=== PATIENT | male | born 1955 | race Caucasian/White ===

== ENCOUNTER 2016-10-13 08:44 | Inpatient (IN) | payer OTHER ==
[~2016-10-13] VITALS: Ht 182.9 cm; Wt 79.3 kg
--- NOTE | ~2016-10-13 | TXPLANREV ---
"PATIENT: JOSE ENRIQUE COOK | | [facility] UNIT #: [id number] | [address] AGE/SEX: 61 M : 57 | [address] | [place] [address] ADMIT/REG DATE: 12/30/16 | ROOM: [facility] LOC: ADTC | [facility] | Treatment Plan/Staffing Review Date: 01/20/17 Treatment plan was reviewed and determined appropriate as written: Yes Treatment plan was reviewed and the following changes/addition/deletions are necessary: Client is to continue working on treatment plan assignments. He will begin working on relapse prevention. Discharge plans were reviewed and determined appropriate as previously documented: No Discharge plans were reviewed and determined to be as follows: Client has been accepted into the [facility]. We are waiting to hear for approval with his toxics program officer, then we will schedule a date for him to go, pending that approval. He will also be recommended to do aftercare here at [facility], attend 3-5 AA meetings per week, as well as to get and call a sponsor on a regular basis. Other pertinent issues discussed during this staffing review include: None at this time. Staff Present: Mary Alan PRIMARY COUNSELOR: RIP Snowden Client Signature Counselor Signature Date Time "
--- NOTE | ~2016-10-13 | RESCARESUM ---
"PATIENT: JOSE ENRIQUE COOK | | [facility] UNIT #: [id number] | [address] AGE/SEX: 61 M : 57 | [address] | [place] [address] ADMIT/REG DATE: 12/30/16 | ROOM: [facility] LOC: ADTC | ADT | Summary of Residential Care Primary Counselor: Jayleen ERWIN Date of Admission: 12/30/16 Date of Discharge: 01/26/17 Referral Source: Licensing And Registration Director, Dada De Jesus Primary Care Provider Prior to Admission: Self Admitting Diagnosis: F10.20 Alcohol Use Disorder, Severe Discharge Diagnosis: Same Goals Achieved: Ferny was able to identify negative consequences of his alcoholism, and gained insight to the disease concept. He completed all packets, including Step 1, which assisted him in recognizing several things. He wrote and processed feelings letters and worked on grief of losing his son to suicide. He also worked on recovery maintenance. He was elected client support representative, which helped boost his self worth and gain leadership qualities. Continued Obstacles to Sobriety/Relapse Issues: Not following rules and regulations of the [facility], not going to aftercare or AA meetings, not getting and calling a sponsor on a regular basis, not seeking multimedia instructional designer employment, and not learning to work a strong program of recovery. Family Issues Addressed: We worked on grief of his sons suicide, and he wrote and processed feelings letters to his other children and other family members. We discussed his divorce and that relationship. Y Individual Therapy Y Group Therapy Y Educational Series on Substance Abuse Y Parents/Significant Others Attended Family Program N Acute Medical Problems During the Course of Treatment N Transferred to Hospital During the Course of Treatment Y Accepting of Substance Abuse Problem N Non-accepting of Substance Abuse Problem N Required Psychological or Psychiatric Consultation During the Course of Treatment Completed AA Step # 1 During This Level of Care Significant Incidences During Treatment: None Reason For Discharge: Y Completed Residential TX Goals and Ready For Next Level of Care N Left Tx Against Medical Advice/Treatment Goals Not Complete N Completed Residential Tx Goals But Refusing Continuing Care Recommendations N Discharged Due to Noncompliance/Treatment Goals not Completed PATIENT: JOSE ENRIQUE COOK | | [facility] UNIT #: [id number] | [address] AGE/SEX: 61 M : 57 | [address] | [place] [address] ADMIT/REG DATE: 12/30/16 | ROOM: [facility] LOC: ADTC | ADTC | Summary of Residential Care N Discharged Earlier Than Planned Due to: Continuing Care Plan/Recommendations: N Intensive Partial Care Y Sponsor N Partial Care Y AA Meetings/NA Meetings Y Outpatient N Co-dependency Services N Therapeutic Community N [address] [place] N Mental Health Therapy N Marriage Counseling N Other Specific Continuing Care Plan: It is recommended that Ferny go directly to the [facility], attend aftercare here with [facility], attend 3-5 AA meetings per week, get and call a sponsor on a regular basis, follow all rules and regulations of both the [facility] and probation, seek multimedia instructional designer work, and learn how to work a strong program of recovery. PRIMARY COUNSELOR: RIP Snowden"
--- NOTE | ~2016-10-13 | INDIVTXPLN ---
"PATIENT: JOSE ENRIQUE COOK | | [facility] UNIT #: [id number] | [address] AGE/SEX: 61 M : 57 | [address] | [place] [address] ADMIT/REG DATE: 12/30/16 | ROOM: [facility] LOC: ADTC | ADTC | Individualized Treatment Plan Date: 01/06/17 Problem Statement/Issue Identified: Client continued to use alcohol, despite ongoing negative consequences, and while being on probation, and he did not reach out to anyone in recovery for help. Goal: Client will learn how to identify negative consequences of his addiction, attend AA/NA meetings, and meet men in recovery. Objectives/Activities to achieve goal: 1. Client is to complete the How to Get Started packet and process it with counselor and selected pages in group. Due Date:01/09/17 Complete: Incomplete: 2. Client is to complete Step 1, process it with counselor and selected pages in group. Due Date:01/13/17 Complete: Incomplete: 3. Client is to attend AA/NA meetings, ask for and get at least 5 names and numbers of men in recovery, and share that list with counselor. Due Date:Ongoing Complete: Incomplete: Client signature Date Counselor signature Date Outcome/Measurement of Progress Towards Goal: Counselor's signature Date "
--- NOTE | ~2016-10-13 | INDIVTXPLN ---
"PATIENT: JOSE ENRIQUE COOK | | [facility] UNIT #: [id number] | [address] AGE/SEX: 61 M : 57 | [address] | [place] [address] ADMIT/REG DATE: 12/30/16 | ROOM: [facility] LOC: ADTC | ADTC | Individualized Treatment Plan Date: 01/20/17 Problem Statement/Issue Identified: Client needs to identify relapse warning signs and develop a plan to deal with them as they arise. Goal: Client will learn how to identify relapse triggers and make a plan of how to avoid them, and maintain his recovery. Objectives/Activities to achieve goal: 1. Client is to complete the Recovery Maintenance packet and process it with counselor. Due Date:01/27/17 Complete: Incomplete: Client signature Date Counselor signature Date Outcome/Measurement of Progress Towards Goal: Counselor's signature Date "
--- NOTE | ~2016-10-13 | TXPLANREV ---
"PATIENT: JOSE ENRIQUE COOK | | [facility] UNIT #: [id number] | [address] AGE/SEX: 61 M : 57 | [address] | [place] [address] ADMIT/REG DATE: 12/30/16 | ROOM: [facility] LOC: ADTC | ADTC | Treatment Plan/Staffing Review Date: 01/13/17 Treatment plan was reviewed and determined appropriate as written: Yes Treatment plan was reviewed and the following changes/addition/deletions are necessary: Client is to continue working on treatment plan assignments. He is working on past trauma and grief, as well as writing other feelings letters. Discharge plans were reviewed and determined appropriate as previously documented: No Discharge plans were reviewed and determined to be as follows: Client will benefit from going to sober living, and has signed releases to go to both the [facility] and the [facility]. Other pertinent issues discussed during this staffing review include: None at this time. Staff Present: Mary Alan PRIMARY COUNSELOR: RIP Snowden Client Signature Counselor Signature Date Time "
--- NOTE | ~2016-10-13 | INDIVTXPLN ---
"PATIENT: JOSE ENRIQUE COOK | | [facility] UNIT #: [id number] | [address] AGE/SEX: 61 M : 57 | [address] | [place] [address] ADMIT/REG DATE: 12/30/16 | ROOM: [facility] LOC: ADTC | ADTC | Individualized Treatment Plan Date: 01/07/17 Problem Statement/Issue Identified: Client needs to address issues related to past trauma, which has contributed to his continued alcohol use. Goal: Client will learn how to identify and process the trauma and grief surrounding his son's . Objectives/Activities to achieve goal: 1. Client is to complete the Grief packet, to include writing a goodbye letter to his son, and process it with counselor. Due Date:01/14/17 Complete: Incomplete: 2. Client is to participate in EMDR and process what he learns from it with counselor. Due Date:01/16/17 Complete: Incomplete: Client signature Date Counselor signature Date Outcome/Measurement of Progress Towards Goal: Counselor's signature Date "
--- NOTE | ~2016-10-13 | CLPRLASSUM ---
PATIENT: JOSE ENRIQUE COOK | | [facility] UNIT #: [id number] | [address] AGE/SEX: 61 M : 57 | [address] | [place] [address] ADMIT/REG DATE: 12/30/16 | ROOM: [facility] LOC: ADTC | ADTC | Client Problem List/Assessment Summary Date: 01/06/17 Problems identified by the client: Client has been charged with DUI for his 4th time, while on probation, and is seeking help. He also has trauma he needs to deal with. Problems identified by significant others: Same Client's Strengths: Client identified his strengths as: He is strong willed, can stay focused, can evaluate situations, and is caring. Problem List: Code: T Client continues to use alcohol &/or drugs despite ongoing negative consequences. Code: T Client does not "reach-out to others for help" and instead resumes using alcohol &/or drugs. Code: T Client has learned to deny or stuff feelings, including grief; needs to learn to identify and process feelings with safe people to acquire the necessary skills to maintain halfway sobriety. Code: T Client needs to identify relapse warning signs and develop a plan to deal with them as they arise. Code : T: to be addressed during course of treatment O: problem noted, expected to resolve itself with abstinence--specific tx plan not required R: problem noted, will be referred upon discharge PRIMARY COUNSELOR: RIP Snowden
--- NOTE | 2016-12-30 14:30 | NUR ---
INITIAL SESSION 1 HR: Clt was oriented to tx plans, schedules and what to expect from tx and this counselor. He stated he is here on his 4th DUI. He is hoping to get it reduced to a 3rd, but isn't sure. He is , has 4 children, one of whom committed suicide, so heard we will work on that while in tx. He admitted he has not dealt w/ it yet. He is to begin working on initial paperwork.
--- NOTE | 2016-12-30 17:44 | NUR ---
ADMISSION NOTE Client is a 61 y/o male referred to treatment by probation and brought here today from [facility] by Crisis Stabilization Unit staff. Clilent had been in the CSU for 4 days. Client states DOC is alcohol, last used 10 days ago, when client was drinking a case of beer per day. Client states NKMA and brings no medications with him today. Client resides in [facility], alone and does not anticiipate anyone coming for family group. Client was searched, no contraband found. Client did turn in a cellphone, wallet with cards, pocket knife and tube of Carmex for storage in the locked cabinet at the [place] [facility]. Rights/Responsibilities: Copy given and explained to client. Signed and accepted by client. Client oriented to physical lay out of the ADTC unit, given Big Book and admission packet. A Patrick was assigned. Buck
--- NOTE | 2016-12-30 19:33 | NUR ---
education note: 1 hour lecture by [facility] on hiv/aid/std. plus clients wwere tested for HIV.
--- NOTE | 2016-12-30 22:09 | NUR ---
Tech note: Client was checked into his room, seen by the DR and gave his first intro. He participated in guided meditation and attended an onsite AA meeting.
--- NOTE | 2016-12-31 05:31 | NUR ---
Bed note : Client was in bed with eyes closed and no movement at all bed checks.
--- NOTE | 2016-12-31 12:29 | NUR ---
AM GROUP 11:09/14.5 HR: Peers helped to ORIENT THIS CLIENT TO GROUP GUIDELINES, GOALS AND OBJECTIVES. Client identified his Drug of Choice as alcohol stating that he has been through treatment once before. Client said he has three children but doubts that they will participate in his treatment due to distance and family responsibilities. Client and peers heard several individuals process assignments and some discussion on the disease concept. This client was attentive and occasional offered feedback from his own perspective.
--- NOTE | 2016-12-31 13:43 | NUR ---
Tech Note: Outside speaker Dean Gonzales spoke at 1300. Client attended and is working on Getting Started.
--- NOTE | 2016-12-31 15:24 | NUR ---
FAMILY CONTACT: Kelli's Mom was called, and she advised there has been depression in the family since kelli's grandfather, who spent lots of [place] in a mental hospital. Kelli's Dad has suffered with it, as well, and she knows in the past couple weeks, kelli has been depressed too. She added it may have something to do w/ his son's . She was reassured we will do some work on that.
--- NOTE | 2016-12-31 15:27 | NUR ---
TRAUMA NOTE: Clt advised his son committed suicide 2 yrs ago. He heard we will work on that in session.
--- NOTE | 2016-12-31 17:26 | NUR ---
SPIRITUAL EDUCATION 1 HR. Topics today were clarifying the differences between spirituality and yazdanism, and playing the spiritual challenge game where they are asked thought provoking open ended questions. It is meant to inspire spiritual line of thought.
--- NOTE | 2016-12-31 22:43 | NUR ---
Tech Note : Client participated in rec by playing catch phrase and attended an onsite NA meeting.
--- NOTE | 2016-12-31 23:40 | NUR ---
Education: 1 Hour. Client attended "Disease Concept" presented by counselor.
--- NOTE | 2017-01-01 05:37 | NUR ---
Bed Note: Client was motionless with eyes closed at all bed checks.
--- NOTE | 2017-01-01 10:48 | NUR ---
Tech Note: Client participated in light stretching for morning exercise. Client stated that he is working on Step One.
--- NOTE | 2017-01-01 13:49 | NUR ---
PEER REVIEWS 1 HR: Clt participated in peer reviews and took a risk to give open and honest feedback to those receiving a review. The last half hour of group clients talked about loved ones and dying.
--- NOTE | 2017-01-01 15:48 | NUR ---
Education 1 Hour: Client heard from a member of the recovery community who shared his experience, strength and hope.
--- NOTE | 2017-01-01 16:11 | NUR ---
Step Education 1 hr/ Focus was on step 12 "having had a spiritual awakening", each person completed a set of questions on paper and then we discussed. This client participated.
--- NOTE | 2017-01-01 19:42 | NUR ---
Tech note: client was off the unit for [employer] banquet and speaker event
--- NOTE | 2017-01-02 11:52 | NUR ---
Group 1.5 Hr Ratio 1:10/Topics today were orientating a new member to group rules and goals, a GS packet and a getting started packet. Client shared how he could relate to what peers were sharing from assignments and issues.
--- NOTE | 2017-01-02 13:54 | NUR ---
Tech Note: Client went with group on an outdoor walk. Client is working on the Big Book.
--- NOTE | 2017-01-02 16:01 | NUR ---
Education Note: Client watched "How to Sabotage Your Treatment"
--- NOTE | 2017-01-02 16:32 | NUR ---
PEER REVIEWS 1.0 HR: Clt participated in peer reviews and took a risk to give open and honest feedback to those receiving a review.
--- NOTE | 2017-01-02 23:02 | NUR ---
TECH NOTE: Client participated in reading [employer], watched tv/movies, attended optional off site AA meeting. Missed communtiy meeting because client was sleeping in bed. SE:
--- NOTE | 2017-01-03 04:05 | NUR ---
Bed Note: Clt lay motionless in bed with eyes closed showing no distress at all bed checks.
--- NOTE | 2017-01-03 14:53 | NUR ---
IS 1 HR: Kelli shared about the suicide of his son. He used jonathant's gun, laid out a tarp, told his Mom he was sorry, and shot himself. Jonathant stated he blames himself for not seeing his depression, for letting him have the gun, and he had resentment for noone telling him his son had depression thru the yrs. He stated he has learned to accept it, but still hurts and is sad about it. He was given the grief pkt and will look into doing EMDR about it, if he is willing. At this point, he wasn't sure.
--- NOTE | 2017-01-03 15:18 | NUR ---
Tech Note: Client is working on studying his program schedule so he is not late. Also had an appt with his counselor.
--- NOTE | 2017-01-03 22:56 | NUR ---
TECH NOTE: Client played a game for REC, attended off site AA meeting, watched TV/movies SE: supper
--- NOTE | 2017-01-04 04:48 | NUR ---
Bed Note: Clt lay motionless in bed with eyes closed showing no distress at all bed checks.
--- NOTE | 2017-01-04 15:23 | NUR ---
Tech Note: Client participated in Big Book and stated that he is working on, "Grief."
--- NOTE | 2017-01-04 22:57 | NUR ---
Tech Note: Client attended A.A.Panel and participated in community clean. SE: Grief Letter
--- NOTE | 2017-01-05 04:51 | NUR ---
Bed Note: Client was motionless with eyes closed at all bed checks.
--- NOTE | 2017-01-05 10:22 | NUR ---
Tech notes: Client is working on BB
--- NOTE | 2017-01-05 15:47 | NUR ---
Morning Group, 1.5 hours, 10/04 Clients all participated in 2 family sculptures with role-playing, feedback, and how they related.
--- NOTE | 2017-01-05 16:02 | NUR ---
RECOVERY EDUCATION 1 HR. Todays topic was on denial; good, bad, and levels, life problems being 85 percent of recovery, and distorted thinking patterns that can keep us stuck.
--- NOTE | 2017-01-05 16:30 | NUR ---
Education note: Client watched video "Nightmare on [address]"
--- NOTE | 2017-01-05 18:43 | NUR ---
Education: 1 Hour. Client attended "Feelings" lecture given by staff.
--- NOTE | 2017-01-05 22:10 | NUR ---
Tech note: Client participated in rec by playing [employer] outside. Client attended an onsite NA meeting.
--- NOTE | 2017-01-06 04:16 | NUR ---
BED NOTE: client was in bed, motionless with eyes closed all three bed checks.
--- NOTE | 2017-01-06 12:00 | NUR ---
A.M. 1.5 hr group/ratio 1:11/ Group heard a 2 getting started assignments and a feelings letter. Focus was on how our addiction affects kids and significant others, abuse, and how important it is to express feelings. This client was quiet until the end and told peer what matters is how your kids see you.
--- NOTE | 2017-01-06 16:18 | NUR ---
Relapse Prevention, 10/01 ratio, 1.0 hours, Client attended and actively participated in relapse prevention education which focused on personal reactions to high risk situtations such as personal reactions vs. personal responses, addictive thinking, irresponsible thinking, addictive behavior, irresponsible behavior, instant gratification, and emotional consequences to thoughts and actions.
--- NOTE | 2017-01-06 16:35 | NUR ---
Tech Note: Client listened to speaker Nelson share his experience, strength and hope. Client is working on the Big Book.
--- NOTE | 2017-01-06 19:32 | NUR ---
Education : 1 hour lecture given by counselor on feelings.
--- NOTE | 2017-01-06 22:15 | NUR ---
Tech note: Client played catchphrase for rec, participated in guided meditation and attended AA meeting. SE: speaker
--- NOTE | 2017-01-07 04:23 | NUR ---
Bed note: client was in bed with eyes closed and no distress at all bed checks.
--- NOTE | 2017-01-07 10:04 | NUR ---
Juan J notes: Client is working on BB and mtg with meme
--- NOTE | 2017-01-07 12:15 | NUR ---
AM GROUP 10:1/1.5 HR: Client and peers participated in the ORIENTATION OF TWO NEW PEERS TO GROUP GUIDELINES, GOALS AND OBJECTIVES. All were involved as three group members processed their work from assignments. Multiple members related, several shared from their own experiences providing support and encouragement. This client asked to be excused to use the restroom but was not allowed to come back in the group.
--- NOTE | 2017-01-07 13:29 | NUR ---
Education note: Client watched video
--- NOTE | 2017-01-07 14:53 | NUR ---
Elizabeth 1 Hr/Client shared about his son killing his self and down played how it has affected him. Talked about issues with mom as well. Client did safe place with EMDR and was easily relaxed. Will check later to see if he would like to do mre EMDR
--- NOTE | 2017-01-07 16:23 | NUR ---
SPIRITUAL EDUCATION 1 HR. Todays topic was the ADDICTIVE SELF vs. SPIRITUAL SELF. We held discussion on who we are in our addiction vs who we are in recovery and contrasted the two.
--- NOTE | 2017-01-07 18:33 | NUR ---
Education: 1 hour lecture on self esteem given by counselor
--- NOTE | 2017-01-07 22:49 | NUR ---
Client did beads for rec and attended N.A.Meeting. SE: Meeting with counselor
--- NOTE | 2017-01-08 04:00 | NUR ---
Bed note: client was in bed with eyes closed and no distress at all bed checks.
--- NOTE | 2017-01-08 10:18 | HP ---
ADMIT: 12/30/2016 RM/LOC: [facility] MR#: [id number] [address] [id number] JOSE ENRIQUE COOK [address] [address] [place] [address] History and Physical SEX: M AGE: 61 : 1955 DATE OF SERVICE: CHIEF COMPLAINT: Alcoholism. CLINICAL HISTORY: The patient is a 61-year-old white male, admitted to the residential care program for treatment of his alcohol use disorder. The patient notes that his drinking has escalated out of control and he was recently arrested for his 4th DUI. He was arrested on 10/30/2016 and was recommended by his prosecuting attorney that he seek treatment for his alcohol use disorder. The patient readily admits that he is an alcoholic. He notes that he had 27 years of sobriety. He went to treatment at the age of 24 in 1979 at the [facility] in [place]. He completed treatment there, then had 27 years sober from 1979 until 2006. He notes, for variety of reasons, he relapsed and started drinking in 2006. He initially thought he was controlling his drinking the first couple of years but over the last 10 years, his drinking has escalated out of control. He notes that alcohol is his drug of choice and really the only drug he uses. He prefers beer, usually drinking Budweiser. He notes that in the past year, he has been drinking up to as much as a case per day, starting drinking in the morning and continuing to drink throughout the day. He denies any history of significant blackouts. He has no history of withdrawal seizures. Does note that when he would stop drinking, he would have significant withdrawal symptoms with shakiness, nausea, sweating, and had gotten to the point that he needed to start drinking early in the day so that he would not start to have those early symptoms of alcohol withdrawal. As noted, he had 27 years of sobriety. Since relapsing, he has had significant financial difficulties, he also notes that his marriages ended in divorce, he has had significant employment issues, all related to his ongoing drinking. He denies any history of other illicit drug use. He experimented with marijuana when he was in high school, but has never really cared for it. He denies any other illicit drug use. He has no history of prescription drug abuse. He is admitted at this time for treatment of his alcohol use disorder. PAST MEDICAL HISTORY: Previous hospitalizations: None. As noted, he did complete the [facility] program in [place] in 1981. Previous operations: He had an appendectomy at age 11. Medical illnesses: He denies any chronic medical problems other than for his alcoholism. He is noted to be a smoker. He usually smokes a pipe. If smoking cigarettes, he will smoke up to a pack or more per day. He denies any significant cardiac, pulmonary, GI, , musculoskeletal, or neurologic complaints. CURRENT MEDICATIONS: He is on no medications. He rarely sees a physician. ALLERGIES: NONE KNOWN. ADMIT: 12/30/2016 RM/LOC: [facility] MR#: [id number] [address] [place] [id number] JOSE ENRIQUE COOK [address] [address] [place] [address] History and Physical SEX: M AGE: 61 : 1955 REVIEW OF SYSTEMS: A 12-point review of systems is negative. SOCIAL HISTORY: The patient is . He currently lives alone. He notes he usually drinks alone, prefers to drink at home. He has been unemployed since July of 2016. He lives in [place]. 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 FAMILY HISTORY: He notes his father is , he of some form of cancer. He notes that he has an older brother, who is an alcoholic. He has a younger brother, who from AIDS. He has a younger sister, who has had no significant substance abuse problems. He is one of four children. He notes there is a history of alcoholism on his father's side of the family. PHYSICAL EXAMINATION: VITAL SIGNS: Temp is 97.3, pulse 63, respirations 12, blood pressure 123/72. Height 6 feet. Weight is 162 pounds. GENERAL: The patient is a 61-year-old male, who appears his stated age. He is in no acute distress. He is oriented x3. HEENT: Reveals his ears to be clear. Nose and throat are noninflamed. Oropharynx is unremarkable. NECK: Supple. Thyroid not enlarged. No cervical adenopathy. No neck vein distention. LUNGS: Noted to be clear. HEART: Regular rhythm without murmur. ABDOMEN: Today is soft. Nontender. No masses. No organomegaly. Bowel sounds are normoactive. No CVA or suprapubic tenderness. GENITALIA: Normal male. EXTREMITIES: Normal to gross exam. No clubbing or cyanosis. No peripheral edema. No calf tenderness. NEUROLOGICAL: He is intact with no focal deficit. Balance and gait normal. INTEGUMENT: No rashes or worrisome skin lesions. MENTAL STATUS EXAMINATION: He is pleasant, cooperative. Affect is appropriate. He has no bizarre ideation. No delusions. He does admit to some past suicidal thoughts and depressive symptoms when drinking heavily, but ADMIT: 12/30/2016 RM/LOC: [facility] MR#: [id number] [address] [id number] JOSE ENRIQUE COOK [address] [place] [address] History and Physical SEX: M AGE: 61 : 1955 denies any of those thoughts at this time. He is oriented x3. His memory is intact. He appears to be of average intelligence. Insight is limited, however. Judgment is guarded. ASSESSMENT AT THE TIME OF ADMISSION: 1. Alcohol use disorder, severe. 2. Tobacco use disorder. PLAN: Plan is to admit the patient to the residential care program with a tentative discharge date of 01/27/2017. Upon completion of treatment, he is unsure of his plans, would entertain the option of going to a [facility]. He notes he needs to be able to work to pay off some of his legal expenses. Flaco Hernández MD/ kailash JOB #: [id number] CC: Flaco Hernández, Attending Physician FAMILY PHYSICIAN, Family Physician
--- NOTE | 2017-01-08 10:44 | NUR ---
FAMILY CONTACT Client's daughter called and advised she has a [address] but would like to make plans to participate. Today is not going to work for her due to prior obligations. She was advised of family work schedule and possible options. Advised her that client's primary counselor will call her.
--- NOTE | 2017-01-08 11:26 | NUR ---
AM GRP 1.5 HRS, Ratio 1:10/ Clt offered good feedback to those who brought up issues. He could relate to treating people better when they are in recovery.
--- NOTE | 2017-01-08 15:26 | NUR ---
Tech Note: Client participated in Spiritual Enrichment in the morning and went for an outdoor walk after lunch. Client stated that he is working on reading the Big Book.
--- NOTE | 2017-01-08 16:16 | NUR ---
Education 1 Hour: Client heard a presentation on cross addiction.
--- NOTE | 2017-01-08 16:26 | NUR ---
Step ed. 1 hr/ focus was on step one and powerlessness. Each person answered a set of questions on paper and then we discussed out loud. This client participated.
--- NOTE | 2017-01-08 23:12 | NUR ---
TECH NOTE: Client did newcommer bookmarks for REC, participated in guided meditation, and attended AA meeting. SE: NIKKI
--- NOTE | 2017-01-09 01:21 | NUR ---
1 HR EDUCATION: Client watched a video "Say Yes to Life" by Father Seth Marrero
--- NOTE | 2017-01-09 04:42 | NUR ---
Bed Note: CLt lay motionless in bed with eyes closed showing no distress at all bed checks.
--- NOTE | 2017-01-09 10:57 | NUR ---
IS 1 hr: Clt shared about his experience w/ [facility]. He stated it felt wierd, but if it will help, that's good. He did talk more about it today, as well, and stated he didn't see any of the signs, even afterwards when he looked back on it. He admitted talking about it does help, so plans to continue talking about it, and doing the EMDR. Clt is to begin writing feelings letters to his children and exwife.
--- NOTE | 2017-01-09 11:30 | NUR ---
GROUP 1.5 HRS. 1:10 Clients participated in orienting new peers to purpose and rules of group. Discussion included consequences of addiction including the effects on family and loved ones as well as feelings and acceptance. This client appropriately confronted peer BE on his plan to use once he is off parole.
--- NOTE | 2017-01-09 15:01 | NUR ---
PEER REVIEWS 1.5 HRS: Clt participated in peer review process and took a risk to give open and honest feedback.
--- NOTE | 2017-01-09 16:23 | NUR ---
Tech Note: Clt watched "Relapse" for afternoon video. Clt is working on Feelings Letters.
--- NOTE | 2017-01-09 22:42 | NUR ---
Tech note: Client watched tv and movies. Client went to an offsite AA meeting.
--- NOTE | 2017-01-10 05:21 | NUR ---
Bed note : Client was in bed motionless with eyes close at all bed checks.
--- NOTE | 2017-01-10 15:37 | NUR ---
Tech Note: Client attended A.A.Meeting at [facility] and [place] and then helped with the clubhouse cleaning, ate lunch, and listened to a speaker. Client is working on [employer]
--- NOTE | 2017-01-10 20:45 | NUR ---
tech note: Client played a game for recreation & attended offsite AA meeting.Client watched tv. SE: All Day.
--- NOTE | 2017-01-11 05:22 | NUR ---
Bed note: Client was in bed motionless with eyes closed at all bed checks.
--- NOTE | 2017-01-11 16:20 | NUR ---
TECH NOTE: Client participated in Chapter 5 of Big Book study, attended taoism and watched tv/movies
--- NOTE | 2017-01-11 23:06 | NUR ---
tech note: client attended AA Panel & participated in Community Clean. Client watched tv. SE: All Day.
--- NOTE | 2017-01-12 04:39 | NUR ---
Bed Note: Clt lay motionless in bed with eyes closed showing no distress at all bed checks.
--- NOTE | 2017-01-12 11:14 | NUR ---
Tech notes: Client is working on Fl's
--- NOTE | 2017-01-12 11:30 | NUR ---
GROUP 1.5 HR/ 9:1 Clients all heard peers share packets/shame booklet and this client was attentive, did relate to his comfort zone can be a wall in treatment so knows needs to take risks. He shared he had both parents but they didn't show any affection, no I love yous and no compliments. He has tried to be the more loving parent.
--- NOTE | 2017-01-12 15:40 | NUR ---
Education note: Client attended speaker for education, Lexie on Tobacco
--- NOTE | 2017-01-12 16:00 | NUR ---
Recovery 101 1 hr/ Clients all participated in reading, highlighting and discussing the Big Book on areas about honest, acceptance, living in problem vs living in solution, resentments, 1/2 measures, and the 12 promises.
--- NOTE | 2017-01-12 18:13 | NUR ---
Education: 1 hour lecture given by counselor on "forgiveness"
--- NOTE | 2017-01-12 21:39 | NUR ---
MED NOTE: CLIENT COMPLAINED OF TOOTH PAIN PAIN LEVEL3. MOTRIN GIVEN
--- NOTE | 2017-01-12 22:26 | NUR ---
Tech note : Client went on a walk for rec and attended an onsite NA meeting. SE; Education
--- NOTE | 2017-01-13 04:15 | NUR ---
Bed note: Client was in bed with eyes closed and no distress at all bed checks.
--- NOTE | 2017-01-13 08:47 | NUR ---
Medication Note: Client took prn medication: Ibuprophen for tooth pain rated at 3. Client also took mucinex.
--- NOTE | 2017-01-13 11:30 | NUR ---
GROUP 1.5 HRS. 1:9 Clients participated in orienting new peer to purpose and rules. Discussion included discharge plans and the importance of aftercare plan. Peer processed HOW TO GET STARTED IN TREATMENT assignment. This client was confronted as he supported male peer in defense of not attending mtgs.
--- NOTE | 2017-01-13 13:17 | NUR ---
Tech Note: Client participated in light stretching for morning exercise and went for an outdoor walk in the afternoon. Client stated that he is working on reading the Big Book.
--- NOTE | 2017-01-13 13:35 | NUR ---
Education One Hour: Client heard a presentation on Sexually Transmitted Disease.
--- NOTE | 2017-01-13 16:07 | NUR ---
Relapse Prevention Education, 1.0 hours, Client attended and actively participated in relapse prevention education which focused on a Relapse Prevention Quiz and discussion over the answers.
--- NOTE | 2017-01-13 20:29 | NUR ---
education note: 1 hour lecture by counselor on" what carrillo are you willing to pay"
--- NOTE | 2017-01-13 22:46 | NUR ---
Tech note: Client attended the Alumni meeting, participated in guided meditation and attended an onsite AA meeting. SE; Becoming group activities aide
--- NOTE | 2017-01-14 04:57 | NUR ---
Bed note: Client was in bed with eyes closed and motionless at all bed checks.
--- NOTE | 2017-01-14 10:38 | NUR ---
Tech notes: Client is working on BB
--- NOTE | 2017-01-14 12:36 | NUR ---
Education note: Client had education by [facility]
--- NOTE | 2017-01-14 13:00 | NUR ---
AM GROUP 11:09/14.5 HR: Client and peers assisted in the ORIENTATION OF A NEW MALE PEER TO GROUP GUIDELINES, GOALS AND OBJECTIVES. Clients heard three peers process issues and assignments. Much of the focus became the child victims of this disease as they are negatively impacted in many ways by their parent's drug use. As peers processed, many related and shared from personal experience. This client appeared attentive and offered generic feedback to those processing but took no personal risks>
--- NOTE | 2017-01-14 17:22 | NUR ---
SPIRITUAL EDUCATION 1 HR. Todays topics were orienting newcomers, and taking a look at Clarence Huffman's 5 SECRETS TO SUCCESS which include a look at the miracles of the human body as blessings.
--- NOTE | 2017-01-14 20:56 | NUR ---
education: 1 hour video on unresolved anger and group discussion with counselor
--- NOTE | 2017-01-14 21:26 | NUR ---
med note: client complained of tooth ache pain level 4, motrin given
--- NOTE | 2017-01-14 22:09 | NUR ---
Tech note: Client worked on beaded project and attended an onsite NA meeting. SE; Spirituality
--- NOTE | 2017-01-15 04:03 | NUR ---
Bed note: Client was in bed with eyes closed and no distress at all bed checks.
--- NOTE | 2017-01-15 08:30 | NUR ---
IS 1 HR: We processed kelli's BPS. He shared about the many deaths in his family. His grandparents, Dad, son. He believes he has learned to accept them all and does not any additional EMDR or grief work. He still tears up when he talks of his son, but knows that it truely wasn't his fault and his son had a plan and was going to carry it thru at one point. He shared from his How to Get Started pkt and is to process it in grp. He also is to share pages 10-11 of his Step 1. Kelli will begin writing feelings letters to his kids and his exwife.
--- NOTE | 2017-01-15 10:24 | NUR ---
Tech Note: Client participated in Spiritual Enrichment. Client stated that he is working on reading the Big Book.
--- NOTE | 2017-01-15 12:48 | NUR ---
Group 1.5 Hr Ratio 1:10/Topics today were a relapse prevention, a feelings letter, a getting started and two step one's. Client shared his Getting Started packet and did a good job looking at what he did is past treatments and what he is going to do different this time.
--- NOTE | 2017-01-15 13:39 | NUR ---
Education 1 Hour: Client heard a presentation from a member of the recovery community who shared his experience, strength and hope.
--- NOTE | 2017-01-15 16:33 | NUR ---
FAMILY EDUCATION 3 HRS. Client attended alone and took part in the discussion on the disease concept. Client shared chemical history and the consequences. He shared about relapse after 27 years sober.
--- NOTE | 2017-01-15 21:34 | NUR ---
tech note: client c/o level 3 headache,motrin 400 mg given. Client requested mucinex for cold syptoms.
--- NOTE | 2017-01-15 23:37 | NUR ---
Tech Note: Client attended Guided Meditation and A.A.Meeting. SE: Counselor Session and A.A.Meeting
--- NOTE | 2017-01-16 04:25 | NUR ---
Eduction: 1 Hour. Client attended "Unresolved Anger" video & discussion presented by staff.
--- NOTE | 2017-01-16 11:54 | NUR ---
Group 1.5 Hr Ratio 1:9/Topics today were two getting started packets, forgiveness and dealing with bad childhoods. Client shared how he could relate and how he could see peer not being congruent with his story ofhis life.
--- NOTE | 2017-01-16 13:00 | NUR ---
PEER REVIEWS 1.5 HRS: Clt participated in peer review process and was able to give open and honest feedback to those receiving a review.
--- NOTE | 2017-01-16 16:22 | NUR ---
Tech Note: Client participated in group walk for exercise and watched "Recovery Issues Part 3" for afternoon video. Client is working on the [employer] Book.
--- NOTE | 2017-01-16 22:48 | NUR ---
TECH NOTE: Client participated in reading guidelines and watched tv/movies. attended optional off site AA meeting SE: group
--- NOTE | 2017-01-17 04:09 | NUR ---
Bed Note: Clt lay motionless in bed with eyes closed showing no distress at all bed checks.
--- NOTE | 2017-01-17 08:25 | NUR ---
Medication Note: Client took prn ibuprophen for tooth pain rated at 3. Client also took prn mucinex.
--- NOTE | 2017-01-17 11:41 | NUR ---
IS 1 HR: Kelli shared his pages 10-11 of Step 1. He did a very thorough job on it. We discussed him being clt leader, and we also discussed the resentments he wrote about in his Step 1. One toward his mom, who sold the family farm and one toward his exwife. He stated he has learned to let things go and he no longer has those resentments.
--- NOTE | 2017-01-17 16:02 | NUR ---
Tech Note: Client attended NA Panel and is working on the Big Book.
--- NOTE | 2017-01-17 16:42 | NUR ---
Tech Note: Client had interview with [facility] of [facility].
--- NOTE | 2017-01-17 20:23 | NUR ---
Tech note: Clt played a game for recreation and attended offsite AA mtg. Watched tv and used phone. SE was clt mtg
--- NOTE | 2017-01-18 04:36 | NUR ---
Bed Note: Clt lay motionless in bed with eyes closed showing no distress at all bed checks.
--- NOTE | 2017-01-18 15:46 | NUR ---
Tech Note: Client participated in Big Book Study. Client stated that he is working on reading the Big Book.
--- NOTE | 2017-01-18 22:43 | NUR ---
Tech Note: Clt attended AA panel, used phone and watched movies. SE was steaks
--- NOTE | 2017-01-19 04:39 | NUR ---
Bed Note: Clt lay motionless in bed with eyes closed showing no distress at all bed checks.
--- NOTE | 2017-01-19 10:15 | NUR ---
Tech notes: Client is working on BB
--- NOTE | 2017-01-19 12:00 | NUR ---
Group 1.5 hr/10:1 Clients heard peers share packets, this client was attentive, he shared Step 1 and did good job. He feels guilt that he put booze ahead of seeing his 3 grandchildren. 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 He lied to and lost trust, was standoffish with his kids as had alcohol on his breath, missed mandaeism and other family things, embarrassed a GF with his drinking, had DT's and Shakes, had 27 years in sober and lost all of that, was never in AA then. He said he carried a rifle and was suicidal at the end of his use.
--- NOTE | 2017-01-19 13:31 | NUR ---
Education: Client attended education by Hien on Infection prevention.
--- NOTE | 2017-01-19 17:00 | NUR ---
FAMILY EDUCATION 3 HRS., GROUP 4 HRS. 1:5 Client was accompanied by his daughter who arrived approx. 2:45. They took part in the discussion on the family roles, codependency and detachment. Client identified with scapegoat role. Daughter was unable to stay for family group as she did not have a sitter that late and lives 4 hours away. She was encouraged to write a feelings letter and possibly schedule family session.
--- NOTE | 2017-01-19 18:11 | NUR ---
Education: 1 Hour. Client attended "Adult Children of Alcoholics" lecture presented by staff.
--- NOTE | 2017-01-19 21:00 | NUR ---
FAMILY GROUP 4:1/ HR: Client, peers and attending family members heard two families process FEELINGS LETTERS. Much of the focus became family of origin issues and rebuilding trust. Everyone related, everyone shared and processed. This client attended alone, but remained active throughout. He had tears at times, and often when a peer or parent were talking about how their drinking/ drug use has deeply affected his kids. Client very supportive of younger male peer and his hopes to rebuild his relationships with his sons.
--- NOTE | 2017-01-19 23:27 | NUR ---
tech note: Client attended Family session. SE: Family.
--- NOTE | 2017-01-20 04:31 | NUR ---
BED NOTE: Client was in bed, motionless with eyes closed all three bed checks.
--- NOTE | 2017-01-20 11:30 | NUR ---
GROUP 1.5 HRS. 1:9 Client participated in orienting new peer to purpose and rules of group. Group discussion included anger and frustration at peer's disrespect and immaturity. This peer was in the other group so clients were redirected at what they can do to be a part of the solution, not part of the problem. This client abruptly left group as 11, apologizing and saying he had to go. After group, in the perez as he was leaving the restroom, he advised he needs to make changes in his diet and avoid spicy foods.
--- NOTE | 2017-01-20 16:00 | NUR ---
Relapse Prevention, 1.0 hours, Client attended and actively participated in relapse prevention education which focused on internal and external triggers.
--- NOTE | 2017-01-20 16:36 | NUR ---
Tech Note: Client participated in Nutritional Services presentation and is working on the Big Book.
--- NOTE | 2017-01-20 22:42 | NUR ---
Education: 1 hour lecture given by counselor on co-dependency
--- NOTE | 2017-01-20 22:51 | NUR ---
Tech note: clients played catchphrase for rec, participated in guided meditation and attended AA meeting SE: 30 day coin
--- NOTE | 2017-01-21 04:36 | NUR ---
bed note: client was in bed with eyes closed and motionless at all bed checks.
--- NOTE | 2017-01-21 09:52 | NUR ---
Tech notes: Client is working on BB
--- NOTE | 2017-01-21 11:30 | NUR ---
GROUP 1.5 HRS. 1:12 Clients participated in orienting new peer to purpose and rules of group. Discussion included healthy coping skills to deal with stress and feelings. Peer processed from his step 1 assignment identifying how he betrayed his values in his addiction. This client excused himself again today to go to the restroom at 11:15.
--- NOTE | 2017-01-21 13:14 | NUR ---
Education note: Client attended educational speaker Patrice Horne
--- NOTE | 2017-01-21 13:52 | NUR ---
IS 1 HR: Kelli shared that he gets most out of meetings, groups and lectures. He advised when he's in them, he doesn't think he's getting anything out of them, but later when he thinks about it, he realizes he does. He stated his goal is to get back to having 27 yrs of sobriety. We discussed the difference between sobriety and recovery. Kelli has been accepted into the [facility], so we are waiting to hear from both his PO and the house president, to determine when he is going.
--- NOTE | 2017-01-21 17:34 | NUR ---
SPIRITUAL EDUCATION 1 HR. Today we used music to invoke discussion, symbolize how it can be either positive spirituality or negative spirituality, and discussed the feelings. We used one song that depicted addiction, one that talked about recovery, and since we are close to Mother's Day, one that depicted addiction in parents and forgiveness.
--- NOTE | 2017-01-21 18:17 | NUR ---
Education: 1 Hour. Client attended "Boudaries" lecture given by staff.
--- NOTE | 2017-01-21 21:55 | NUR ---
tech note: client c/o tooth rosie & congestion @ 2135,mucinex & motrin 400 mg given.
--- NOTE | 2017-01-21 22:54 | NUR ---
Tech Note: Client played a game for rec, and attended The on unit N.A.Meeting. SE: Counselor session
--- NOTE | 2017-01-22 04:29 | NUR ---
Bed Note: Client was in bed with eyes closed and motionless at all bed checks.
--- NOTE | 2017-01-22 12:43 | NUR ---
Group 1.5 Hr Ratio 1:9/Topics today were a collage, two step ones, a getting startred and feelings letters. Client shared how he could relate to what clients were sharing from assignments and issues. At 11:00 he left group without saying a word and did not come back.
--- NOTE | 2017-01-22 15:55 | NUR ---
step education 1 hr/ Focus was on step 3 of the 12 steps Made a decision to turn our will and lives over to God. Each person were given questions to answer on paper and then to share and discuss. This client participated.
--- NOTE | 2017-01-22 18:16 | NUR ---
Education 1HR: Clt watched video called "Predator part 1" by Nemesio Amaya with staff present.
--- NOTE | 2017-01-22 23:07 | NUR ---
Tech Note: Client took a walk for rec and attended the A.A.Meeting. SE: Speaker/Video
--- NOTE | 2017-01-22 23:22 | NUR ---
1:00 pm. Education Note: Client watched video "Inside the Addictive Personality"
--- NOTE | 2017-01-23 04:07 | NUR ---
Bed Note: Client was in bed and motionless at all bed checks.
--- NOTE | 2017-01-23 14:41 | NUR ---
PEER REVIEWS 1.5 HRS: Clt participated in peer review process and was able to give open and honest feedback to those receiving a review. Client also received his won peer review and heard he needs to slow down, is stuck in old ways, is too quiet, hides, bottles things up and is grumpy, needs convivtion, needs to open up, keeps to self too much, tells others what to dod but does not look at self. Client agreed and said he could change.
--- NOTE | 2017-01-23 15:15 | NUR ---
GROUP 1 HR/ 11:1 Clients were mostly all talkative sharing about recovery attempts, clean time was good, addiction made things get bad quick, etc. This client was involved in relating and encouraged a peer that was his age when he first got clean and had 27 years.
--- NOTE | 2017-01-23 15:39 | NUR ---
Tech Note: Client participated in group walk and watched "Marijuana" by Nemesio Amaya. Assignment being worked on is Relapse Prevention.
--- NOTE | 2017-01-23 21:53 | NUR ---
MED NOTE: CLIENT COMPLAINED OF toothache. pain level 2. motrin was given
--- NOTE | 2017-01-23 23:19 | NUR ---
Tech note: Client played games and watched movies. Client walked to an offsite AA meeting.
--- NOTE | 2017-01-24 04:01 | NUR ---
Bed note: Client was in bed with eyes closed and no distress at all bed checks
--- NOTE | 2017-01-24 14:00 | NUR ---
FINAL SESSION 1 HR: Clt heard he can go to the [facility] Thursday morning, when he gets up, as the change house attendant will pick him up as soon as he gets off work. He stated he will be packed and ready to go and is looking forward to getting a job and getting on w/ his life. He stated his greatest gratitude is that he didn't ever get into using meth, as many of the people here have done. He stated his life was already a mess, and his goal is to get 27 yrs of recovery this time, instead of 27 yrs of sobriety. Clt did his continued care plan, completed the survey and was given a coin and completed thru tx.
--- NOTE | 2017-01-24 16:48 | NUR ---
Tech Note: Client went to A.A.Meeting at [address]. Client also went on a walk Client is working on Recovery and had a visit with her counselor.
--- NOTE | 2017-01-24 22:01 | NUR ---
Tech note: Client's were just starting to grill around 6pm so we did not have rec this evening. Client walked to an offsite AA meeting, played games and watched movies. SE; Meeting with counselor and recieving his coin for completion of treatment.
--- NOTE | 2017-01-24 22:31 | NUR ---
tech note: client c/o congestion @ 2150,mucinex was given.
--- NOTE | 2017-01-25 04:45 | NUR ---
tech note: client was motionless in no distress at all bed checks.
--- NOTE | 2017-01-25 17:31 | NUR ---
Tech Note: Client participated in Big Book study. Client attended yarsanism. Client stated that he is working on reading the Big Book.
--- NOTE | 2017-01-25 23:25 | NUR ---
tech note: Client participated in community clean. Client watched tv. Client was given his luggage. SE: All day.
--- NOTE | 2017-01-26 04:23 | NUR ---
tech note: client was motionless in no distress at all bed checks.
--- NOTE | 2017-01-26 06:46 | NUR ---
DISCHARGE NOTE Client left tx with ride to the [facility]. All personal belongings were sent with. Discharge instructions gone over and copy given.
--- NOTE | 2017-03-01 13:46 | DS ---
ADMIT: 12/30/2016 RM/LOC: [facility] MR#: [id number] [address] [id number] JOSE ENRIQUE COOK [address] [address] [place] [address] General Discharge Summary SEX: M AGE: 61 : 1955 ADMISSION DATE: 12/30/2016 DISCHARGE DATE: 01/26/2017 This is from his admission to the residential care program at the [facility]. ADMITTING DIAGNOSIS: As per history and physical. FINAL DIAGNOSES: 1. Alcohol use disorder, severe. 2. Tobacco use disorder. COMPLICATIONS: None. OPERATIONS: None. CLINICAL HISTORY: The patient is a 61-year-old white male, admitted to the residential care program for treatment of his alcohol use disorder. The patient is referred to treatment after he was recently arrested for his 4th DUI. For details of his pattern of usage and problems associated with his long-term alcohol dependence as well as prior treatment, please see the clinical history portion of the dictated history and physical. Please also see dictated history and physical for pertinent past medical history and physical exam findings. Laboratory and x-ray summary from this admission, none indicated, none performed. HOSPITAL COURSE: The patient was admitted to the residential care program on 12/30/2016. He remained in the treatment program until 01/26/2017. While in treatment, his primary counselor was Jayleen Flaherty. He participated in individual therapy and group therapy. He was also given the educational series on substance abuse and worked on many of these assignments during his stay at the treatment program. He attended the family education and family group sessions, but none of his family participated. He did write feeling letters to several family members as a family portion of the program. While in treatment, he was accepting of his substance abuse problem. He worked well with the staff in both individual and group settings. He had a positive attitude towards treatment and was able to complete step 1 of AA during this level of care. While in treatment, he had no significant medical issues. He was able to identify the negative consequences of his alcoholism. He gained insight into the disease concept of alcoholism and was able to get a better understanding of his powerlessness over alcohol. He worked on processing through and dealing with the grief on losing his son who committed suicide. He worked on maintaining a sober lifestyle while in recovery. 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 He ultimately completed his residential treatment goals and was felt to be ready for the next level of care. The patient was dismissed to the [address] He is going to ADMIT: 12/30/2016 RM/LOC: [facility] MR#: [id number] [address] [id number] JOSE ENRIQUE COOK [address] [place] [address] General Discharge Summary SEX: M AGE: 61 : 1955 continue outpatient aftercare here with individual sessions with Nav Weiss weekly as well as weekly group sessions. He is going to attend 3 to 5 AA meetings per week and maintain regular contact with the sponsor. He is going to reside at the [address] for at least the next 6 months while he continues in aftercare here at the [facility]. CONDITION AT DISCHARGE: Girard to be improved. PROGNOSIS: Girard to be good. At discharge, his only medications were [id number] multivitamin and over- the-counter thiamine. Flaco Hernández MD/ kailash JOB #: [id number] CC: Flaco Hernández MD, Attending Physician NO FAMILY PHYSICIAN, Family Physician
== END 2017-01-26 06:47 | disposition home or self-care (01) | DRG 895 ==
LOC: ADTC 08:44
PROVIDERS: ADMIT Family Medicine
DX: F10.20 Alcohol dependence, uncomplicated (principal); F17.210 Nicotine dependence, cigarettes, uncomplicated; Z81.1 Family history of alcohol abuse and dependence; Z65.3 Problems related to other legal circumstances; Z56.0 Unemployment, unspecified